=== PATIENT | female | born 1930 | race Caucasian/White ===

== ENCOUNTER 2016-09-06 18:00 | Inpatient (IN) | payer OTHER, MEDICARE ==
[~2016-09-06] VITALS: Ht 157.5 cm; Wt 60.2 kg
[~2016-09-06 18:00] MED LIST: AMLO5 PO; ATOR20TA PO; CALC600T44 PO; DILTCD120 PO; FERR325T PO; METO50TA PO; NORC7.5T PO; RIVA20 PO; VITA100018 PO; WALKER STANDARD
[2016-09-06 18:02] VITALS: BP 135/73; PULSE 81; RESP 16; TEMP 98.8; O2SAT 95
[2016-09-06] MEDS ORDERED: PIPERACIL-TAZO 4.5 GM PREMIX 100 ML IV STA (18:18)
[2016-09-06] MEDS ORDERED: SODIUM CHLOR 0.9% 1000 ML INJ 800 ML IV ONE (18:18)
[2016-09-06] MEDS ORDERED: VANCOMYCIN INJ 1,000 MG in SODIUM CHLOR 0.9% 250 ML INJ 250 ML IV STA (18:18)
[2016-09-06] MEDS ORDERED: SODIUM CHLOR 0.9% 1000 ML INJ 1,000 ML IV ONE (18:18)
--- NOTE | 2016-09-06 18:25 | PD ---
HPI Chief Complaint: Altered Mental Status Time Seen by Provider: 18:10 Travel History International Travel<30 days: No Contact w/Intl Traveler<30days: No Traveled to known affect area: No History of Present Illness HPI 86-year-old female with history of HTN, HLD, TIA who presents the emergency department for altered mental status. Patient is here with her who provides history. Patient last seen normal 2 days ago. Over the course the last 2 days patient has become progressively more and more altered, confused. They note that she has had tactile fevers at home, cough. Patient has not had any complaints. is concerned patient may be dehydrated. Patient is alert, looking around the room, but confused and is not even alert to self lead alone place or time. Not able to participate with history. PFSH Past Medical History Autoimmune Disease: No Heart Rhythm Problems: No Cancer: No Cardiovascular Problems: Yes High Cholesterol: Yes Chest Pain: No Congestive Heart Failure: No Cerebrovascular Accident: Yes (2 tia) Diminished Hearing: No Endocrine: No Genitourinary: No Hypertension: Yes Immune Disorder: No Musculoskeletal: No Neurologic: No Reproductive: No Respiratory: No Immunizations Current: Yes Menopausal: Yes Past Surgical History Eye Surgery: Yes (BILAT CATARACT) Joint Replacement: Yes (right hip and L hip) Other Surgery: Yes (CAROTID ENDARECTOMY RIGHT) Social History Alcohol Use: Yes (RARE) Tobacco Use: No Substance Use: No Allergies-Medications (Allergen,Severity, Reaction): Coded Allergies: Sulfa (Verified Allergy, Mild, RASH, 09/06/16) Reported Meds & Prescriptions Reported Meds & Active Scripts Active Xarelto 20 Mg Tab (Rivaroxaban) 20 Mg Tab 20 Mg PO DAILY 30 Days Metoprolol Tartrate 50 Mg Tab 50 Mg PO BID Diltiazem HCl ER (Diltiazem HCl) 120 Mg Capcr 120 Mg PO DAILY 0 Days Norvasc (Amlodipine Besylate) 5 Mg Tab 5 Mg PO DAILY Walker Standard (Device) Device 1 Ea Reported Calcium (Calcium Carbonate) 600 Mg Tab 600 Mg PO DAILY Iron (Ferrous Sulfate) 325 Mg Tab 325 Mg PO UNKNOWN Atorvastatin 20 mg tab (Atorvastatin Calcium) 20 Mg Tab 20 Mg PO HS [place] 7.5/325 (Hydrocodone/Acetaminophen 7.5/325) 7.5 Mg/325 Mg Tab 1 Tab PO TID PRN Vitamin D (Cholecalciferol) 1,000 Unit Tab Unknown Dose PO DAILY Review of Systems ROS Limitations: Altered Mental Status, Poor Historian Physical Exam Exam Limitations: Altered Mental Status, Poor Historian Narrative GENERAL: Elderly female, thin line in bed in no acute distress SKIN: Warm and dry. HEAD: Normocephalic. EYES: Pupils equal and round. 3 mm. No scleral icterus. No injection or drainage. ENT: No nasal bleeding or discharge. Mucous membranes slightly dry NECK: Supple without nuchal rigidity CARDIOVASCULAR: Regular rate and rhythm. No murmur appreciated. RESPIRATORY: No accessory muscle use. Clear to auscultation. Breath sounds equal bilaterally. GASTROINTESTINAL: Abdomen soft, non-tender, nondistended. MUSCULOSKELETAL: No obvious deformities. No edema. NEUROLOGICAL: Awake, looking around room in no acute distress. Patient is not alert to self, place, or time. Motor grossly within normal limits. Normal speech, not slurred. PSYCHIATRIC: Deferred given mental status Data Data Last Documented VS Vital Signs Date Time Temp Pulse Resp B/P Pulse Ox O2 Delivery O2 Flow Rate FiO2 09/06/16 18:34 87 18 09/06/16 18:33 100.2 09/06/16 18:30 96 09/06/16 18:02 135/73 Orders Electrocardiogram (09/06/16 18:18) Complete Blood Count With Diff (09/06/16 18:18) Comprehensive Metabolic Panel (09/06/16 18:18) Lactic Acid Sepsis Protocol (09/06/16 18:18) Lipase (09/06/16 18:18) Troponin I (09/06/16 18:18) Urinalysis - C+S If Indicated (09/06/16 18:18) Blood Culture (09/06/16 18:18) Chest, Single Ap (09/06/16 18:18) Blood Glucose (09/06/16 18:18) Ecg Monitoring (09/06/16 18:18) Iv Access Insert/Monitor (09/06/16 18:18) Oximetry (09/06/16 18:18) Acetaminophen (Tylenol) (09/06/16 18:30) Vancomycin Inj (Vancomycin Inj) (09/06/16 18:18) Piperacil-Tazo 4.5 Gm Premix (Zosyn 4.5 (09/06/16 18:18) Sodium Chlor 0.9% 1000 Ml Inj (Ns 1000 M (09/06/16 18:18) Sodium Chlor 0.9% 1000 Ml Inj (Ns 1000 M (09/06/16 18:18) Ct Brain W/O Iv Contrast(Rout) (09/06/16 ) Labs Laboratory Tests Test 09/06/16 18:28 White Blood Count 6.8 TH/MM3 Red Blood Count 4.51 MIL/MM3 Hemoglobin 14.4 GM/DL Hematocrit 42.6 % Mean Corpuscular Volume 94.3 FL Mean Corpuscular Hemoglobin 32.0 PG Mean Corpuscular Hemoglobin 33.9 % Concent Red Cell Distribution Width 11.4 % Platelet Count 260 TH/MM3 Mean Platelet Volume 8.1 FL Neutrophils (%) (Auto) 78.8 % Lymphocytes (%) (Auto) 11.5 % Monocytes (%) (Auto) 8.5 % Eosinophils (%) (Auto) 0.3 % Basophils (%) (Auto) 0.9 % Neutrophils # (Auto) 5.3 TH/MM3 Lymphocytes # (Auto) 0.8 TH/MM3 Monocytes # (Auto) 0.6 TH/MM3 Eosinophils # (Auto) 0.0 TH/MM3 Basophils # (Auto) 0.1 TH/MM3 CBC Comment DIFF FINAL Differential Comment MDM Medical Decision Making Medical Screen Exam Complete: Yes Emergency Medical Condition: Yes Medical Record Reviewed: Yes Differential Diagnosis 86-year-old elderly female here with complaint of altered mental status, fever and concern for dehydration. Differential includes UTI, pneumonia, delirium, electrolyte abnormality, bacteremia, intra-abdominal source sepsis, symptomatic anemia, ICH, CVA. Narrative Course Patient placed on monitor, IV established and blood obtained. Her oral temperature in triage was normal, the patient is tactilely warm and her temperature was checked rectally and was 100.2. Patient was given Tylenol and empirically treated with 30 mg/kg normal saline bolus, vancomycin, Zosyn. Twelve-lead EKG showed sinus rhythm without notable ST abnormalities, normal intervals. CBC, CMP, lipase, lactic acid, troponin, urinalysis, blood cultures were obtained and are pending at the time this dictation. Chest x-ray, CT had also remains pending. Patient signed out to oncoming provider waiting results of same for ultimate admission. Diagnosis Primary Impression: Altered mental status Qualified Code: R41.0 - Delirium Additional Impression: Fever Qualified Code: R50.9 - Fever, unspecified fever cause Admitting Information Admitting Physician Requests: Admit Julia Salas MD Sep 06, 2016 18:25
[2016-09-06 18:30] VITALS: O2SAT 96
[2016-09-06] MEDS ORDERED: ACETAMINOPHEN 325 MG TAB PO ONE (18:30)
[2016-09-06 18:33] VITALS: TEMP 100.2
[2016-09-06 18:41] LABS: AUTOMATED NEUTROPHIL # 5.3 TH/MM3 (1.8-7.7); BASOPHIL # 0.1 TH/MM3 (0-0.2); BASOPHIL % 0.9 % (0.0-2.0); EOSINOPHIL % 0.3 % (0.0-4.0); HEMATOCRIT 42.6 % (35.0-46.0); HEMO FLAGS DIFF FINAL; LYMPH % 11.5 % (9.0-44.0); LYMPHOCYTE # 0.8 TH/MM3 (1.0-4.8); MEAN CELL VOLUME 94.3 FL (80.0-100.0); MEAN CORPUSCULAR HGB CONC 33.9 % (32.0-36.0); MONO % 8.5 % (0.0-8.0); NEUT % 78.8 % (16.0-70.0); PLATELET COUNT 260 TH/MM3 (150-450); RED BLOOD COUNT 4.51 MIL/MM3 (4.00-5.30); RED CELL DISTRIBUTION WIDTH 11.4 % (11.6-17.2); WHITE BLOOD COUNT 6.8 TH/MM3 (4.0-11.0)
[2016-09-06 18:49] LABS: GLUCOSE,URINE NEG (NEG); KETONE, URINE NEG (NEG); NITRITE,URINE NEG (NEG)
[2016-09-06 18:53] LABS: BLOOD, URINE MOD (NEG)
[2016-09-06 18:54] LABS: CHLORIDE 98 MEQ/L (98-107); POTASSIUM 3.1 MEQ/L (3.5-5.1); SODIUM (NA) 136 MEQ/L (136-145)
[2016-09-06 18:56] LABS: METHOD OF COLLECTION CATH; SQUAMOUS EPITHELIAL CELL URINE 0-2 /hpf (0-5); URINE COLOR YELLOW (YELLW/STRAW); WBC, URINE 0-2 /hpf (0-5)
[2016-09-06 18:57] LABS: BACTERIA, URINE RARE /hpf; COMMENT (UR) CULTURE INDICATED; CULTURE IF INDICATED CULTURE INDICATED
[2016-09-06 18:58] LABS: ANION GAP 10 MEQ/L (5-15); BICARBONATE 28.1 MEQ/L (21.0-32.0); BLOOD UREA NITROGEN 12 MG/DL (7-18)
[2016-09-06 19:01] LABS: ALT (GPT) 11 U/L (10-53); AST (GOT) 13 U/L (15-37); GLOMERULAR FILTRATION RATE 47 ML/MIN (>89)
[2016-09-06 19:02] LABS: TOTAL BILIRUBIN ADULT 0.8 MG/DL (0.2-1.0)
[2016-09-06 19:03] LABS: ALKALINE PHOSPHATASE 124 U/L (45-117)
--- NOTE | 2016-09-06 19:10 | RADHPO ---
EXAM DATE/TIME: 09/06/2016 18:43 [facility] COMPARISON: CT BRAIN W/O CONTRAST, January 20, 2015, 13:00. INDICATIONS : Altered mental status. RADIATION DOSE: 63.14 CTDIvol (mGy) MEDICAL HISTORY : Cardiovascular disease. Hypertension. SURGICAL HISTORY : None. ENCOUNTER: Initial ACUITY: 1 day PAIN SCALE: 5/10 LOCATION: cranial TECHNIQUE: Multiple contiguous axial images were obtained of the head. Using automated exposure control and adj ustment of the mA and/or kV according to patient size, radiation dose was kept as low as reasonably a chievable to obtain optimal diagnostic quality images. FINDINGS: CEREBRUM: The ventricles are normal for age. No evidence of midline shift, mass lesion, hemorrhage or acute in farction. No extra-axial fluid collections are seen. Chronic low attenuation again seen in the periv entricular white matter. POSTERIOR FOSSA: The cerebellum and brainstem are intact. The 4th ventricle is midline. The cerebellopontine angle i s unremarkable. EXTRACRANIAL: There is mucoperiosteal thickening in the visualized ethmoid air cells and fluid/debris in the left m axillary air cell. SKULL: The calvaria is intact. No evidence of skull fracture. CONCLUSION: 1. No acute intracranial abnormality. 2. Chronic white matter changes. 3. Acute on chronic-appearing sinus disease. Felipe Haas MD on September 06, 2016 at 19:07 Board Certified Radiologist. This report was verified electronically.
--- NOTE | 2016-09-06 19:15 | RADHPO ---
EXAM DATE/TIME: 09/06/2016 18:23 [facility] COMPARISON: CHEST SINGLE AP, March 20, 2015, 15:54. INDICATIONS : Per family patient has altered mental status and fever. MEDICAL HISTORY : Hypertension. SURGICAL HISTORY : None. ENCOUNTER: Initial ACUITY: 1 day PAIN SCORE: 0/10 LOCATION: Bilateral chest FINDINGS: No infiltrate, effusion or pneumothorax. Heart size stable, within normal limits. Calcified mitral va lve again noted. Thoracic aorta and mediastinal vessels are tortuous. CONCLUSION: No acute cardiopulmonary disease demonstrated. Felipe Haas MD on September 06, 2016 at 19:13 Board Certified Radiologist. This report was verified electronically.
--- NOTE | 2016-09-06 19:33 | PD ---
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 HEAD: Normocephalic. EYES: No scleral icterus. No injection or drainage. NECK: Supple, trachea midline. No JVD or lymphadenopathy. CARDIOVASCULAR: Regular rate and rhythm without murmurs, gallops, or rubs. RESPIRATORY: Breath sounds equal bilaterally. No accessory muscle use. GASTROINTESTINAL: Abdomen soft, non-tender, nondistended. Data Data Last Documented VS Vital Signs Date Time Temp Pulse Resp B/P Pulse Ox O2 Delivery O2 Flow Rate FiO2 09/06/16 19:51 85 18 130/74 95 Room Air 09/06/16 18:33 100.2 Orders Electrocardiogram (09/06/16 18:18) Complete Blood Count With Diff (09/06/16 18:18) Comprehensive Metabolic Panel (09/06/16 18:18) Lactic Acid Sepsis Protocol (09/06/16 18:18) Lipase (09/06/16 18:18) Troponin I (09/06/16 18:18) Urinalysis - C+S If Indicated (09/06/16 18:18) Blood Culture (09/06/16 18:18) Chest, Single Ap (09/06/16 18:18) Blood Glucose (09/06/16 18:18) Ecg Monitoring (09/06/16 18:18) Iv Access Insert/Monitor (09/06/16 18:18) Oximetry (09/06/16 18:18) Acetaminophen (Tylenol) (09/06/16 18:30) Vancomycin Inj (Vancomycin Inj) (09/06/16 18:18) Piperacil-Tazo 4.5 Gm Premix (Zosyn 4.5 (09/06/16 18:18) Sodium Chlor 0.9% 1000 Ml Inj (Ns 1000 M (09/06/16 18:18) Sodium Chlor 0.9% 1000 Ml Inj (Ns 1000 M (09/06/16 18:18) Ct Brain W/O Iv Contrast(Rout) (09/06/16 ) Urine Culture (09/06/16 18:25) Admit To Inpatient (09/06/16 ) Vital Signs (Adult) Q4H (09/06/16 20:14) Activity Oob With Assistance (09/06/16 20:14) Senior Firmware Engineer / Telemetry .CONTINUOUS (09/06/16 20:14) Diet Heart Healthy (09/07/16 Breakfast) Sodium Chloride 0.9% Flush (Ns Flush) (09/06/16 20:15) Sodium Chloride 0.9% Flush (Ns Flush) (09/06/16 21:00) Basic Metabolic Panel (Bmp) (09/07/16 06:00) Complete Blood Count With Diff (09/07/16 06:00) Creatine Kinase (Cpk) (09/07/16 00:30) Creatine Kinase (Cpk) (09/07/16 06:30) Troponin I (09/07/16 00:30) Troponin I (09/07/16 06:30) Electrocardiogram (09/07/16 00:30) Electrocardiogram (09/07/16 06:30) Pt Request For Service (09/06/16 20:14) Case Management Consult (09/06/16 20:14) Naloxone Inj (Narcan Inj) (09/06/16 20:15) Inpatient Certification (09/06/16 ) Vancomycin Consult Pharmacy (Vancomycin (09/06/16 20:30) Admit Order (Ed Use Only) (09/06/16 ) ^ Saline Lock (09/06/16 20:19) Resp Oxygen Sunil C Titrat 1-4 L (09/06/16 ) ^ Notify Dr: Other (09/06/16 20:19) Labs Laboratory Tests Test 09/06/16 09/06/16 09/06/16 18:25 18:28 19:12 Urine Collection Type CATH Urine Color YELLOW Urine Turbidity CLEAR Urine pH 7.0 Urine Specific [place] 1.014 Urine Protein 30 mg/dL Urine Glucose (UA) NEG mg/dL Urine Ketones NEG mg/dL Urine Occult Blood MOD Urine Nitrite NEG Urine Bilirubin NEG Urine Leukocyte Esterase NEG Urine RBC 4-9 /hpf Urine WBC 0-2 /hpf Urine Squamous Epithelial 0-2 /hpf Cells Urine Bacteria RARE /hpf Microscopic Urinalysis Comment CULTURE INDICATED White Blood Count 6.8 TH/MM3 Red Blood Count 4.51 MIL/MM3 Hemoglobin 14.4 GM/DL Hematocrit 42.6 % Mean Corpuscular Volume 94.3 FL Mean Corpuscular Hemoglobin 32.0 PG Mean Corpuscular Hemoglobin 33.9 % Concent Red Cell Distribution Width 11.4 % Platelet Count 260 TH/MM3 Mean Platelet Volume 8.1 FL Neutrophils (%) (Auto) 78.8 % Lymphocytes (%) (Auto) 11.5 % Monocytes (%) (Auto) 8.5 % Eosinophils (%) (Auto) 0.3 % Basophils (%) (Auto) 0.9 % Neutrophils # (Auto) 5.3 TH/MM3 Lymphocytes # (Auto) 0.8 TH/MM3 Monocytes # (Auto) 0.6 TH/MM3 Eosinophils # (Auto) 0.0 TH/MM3 Basophils # (Auto) 0.1 TH/MM3 CBC Comment DIFF FINAL Differential Comment Sodium Level 136 MEQ/L Potassium Level 3.1 MEQ/L Chloride Level 98 MEQ/L Carbon Dioxide Level 28.1 MEQ/L Anion Gap 10 MEQ/L Blood Urea Nitrogen 12 MG/DL Creatinine 1.10 MG/DL Estimat Glomerular Filtration 47 ML/MIN Rate Random Glucose 124 MG/DL Calcium Level 9.4 MG/DL Total Bilirubin 0.8 MG/DL Aspartate Amino Transf 13 U/L (AST/SGOT) Alanine Aminotransferase 11 U/L (ALT/SGPT) Alkaline Phosphatase 124 U/L Troponin I 0.55 NG/ML Total Protein 7.7 GM/DL Albumin 3.9 GM/DL Lipase 132 U/L Lactic Acid Level 1.6 mmol/L [facility] Medical Record Reviewed: Yes Supervised Visit with JIM: No Interpretation(s) Vital Signs Date Time Temp Pulse Resp B/P Pulse Ox O2 Delivery O2 Flow Rate FiO2 09/06/16 18:34 87 18 09/06/16 18:33 100.2 09/06/16 18:30 96 09/06/16 18:02 98.8 81 16 135/73 95 Last Impressions Chest X-Ray 09/06/16 1818 Signed Impressions: Service Date/Time: Tuesday, September 06, 2016 18:23 - CONCLUSION: No acute cardiopulmonary disease demonstrated. Felipe Haas MD Head CT 09/06/16 0000 Signed Impressions: Service Date/Time: Tuesday, September 06, 2016 18:43 - CONCLUSION: 1. No acute intracranial abnormality. 2. Chronic white matter changes. 3. Acute on chronic-appearing sinus disease. Felipe Haas MD CBC & BMP Diagram 09/06/16 18:28 troponin I: 0.55, elevated ua: cath specimen: rare bacteria --cx indicated Differential Diagnosis accepted in transfer of care from Dr Salas; please refer to her dictation Narrative Course accepted in transfer of care from Dr Salas Lab values resulted patient identified to have an elevated troponin of 0.55 lactic acid of 1.6 renal insufficiency creatinine of 1.10 with hypokalemia 3.1 Patient's case discussed in detail with admitting physician Dr. Aquino; patient will be admitted for altered mentation with fever probable sepsis/sirs; with elevated troponin I without evidence of abnormal changes on EKG possible nstemi patient takes xarelto; hypokalemia and renal insufficiency. Patient given aspirin 162 mg and oral potassium replacement Critical Care Narrative Aggregate critical care time was pending 35minutes. Time to perform other separately billable procedures was not included in the critical care time. My time did not include minutes spent treating any other patients simultaneously or on activities that did not directly contribute to the patient's treatment. The services I provided to this patient were to treat and/or prevent clinically significant deterioration that could result in: Arrhythmia, septic/cardiogenic shock, I provided critical care services requiring my management, as noted below: Chart data review, documentation time, medication orders and management, vital sign assessments/reviewing monitor data, ordering and reviewing lab tests, ordering and interpreting/reviewing x-rays and diagnostic studies, care of the patient and discussion of the patient with the admitting physicians. Diagnosis Primary Impression: Altered mental status Qualified Code: R41.0 - Delirium Additional Impressions: Fever Qualified Code: R50.9 - Fever, unspecified fever cause Elevated troponin NSTEMI (non-ST elevated myocardial infarction) Hypokalemia Admitting Information Admitting Physician Requests: Admit Scripts Unable to Obtain Active Prescriptions or Reported Meds Kateryna Pimentel MD Sep 06, 2016 19:33
[2016-09-06 19:51] VITALS: BP 130/74; PULSE 85; RESP 18; O2SAT 95
[2016-09-06] MEDS ORDERED: NALOXONE HCL 0.4 MG/ML AMP IV PRN (20:15)
[2016-09-06] MEDS ORDERED: SODIUM CHLORIDE 0.9% FLUSH 5 ML FLUSH FLUSH PRN (20:15)
[2016-09-06] MEDS ORDERED: SODIUM CHLORIDE 0.9% FLUSH 5 ML FLUSH IVF PRN (20:30)
[2016-09-06] MEDS ORDERED: Vancomycin Consult Pharmacy 1 EA OTHER SCH (20:30)
[2016-09-06] MEDS ORDERED: SODIUM CHLORIDE 0.9% FLUSH 5 ML FLUSH IVF SCH (21:00)
[2016-09-06] MEDS: SODIUM CHLORIDE 0.9% FLUSH 5 ML FLUSH FLUSH SCH (21:00)
[2016-09-06 22:20] VITALS: O2SAT 97
[2016-09-06] MEDS: PIPERACILLIN/TAZ 2.25 GM VIAL 2.25 GM in SODIUM CHLORIDE 0.9% INJ 50 ML IV SCH (23:09)
[2016-09-06 23:13] VITALS: BP 131/64; PULSE 74; RESP 18; TEMP 99.1; O2SAT 94
[2016-09-07] VITALS (12 sets, daily range): BP systolic 118–178; BP diastolic 51–91; PULSE 58–86; RESP 14–26; TEMP 97.2–98.1; O2SAT 89–97
[2016-09-07] MEDS ORDERED: POTASSIUM CHLORIDE 20 MEQ CONTROLLED RELEASE TAB PO ONE
[2016-09-07] MEDS ORDERED: ASPIRIN 81 MG CHEW TAB CHEW ONE
[2016-09-07] MEDS ORDERED: PIPERACIL-TAZO 4.5 GM PREMIX 100 ML IV SCH
[2016-09-07] MEDS ORDERED: PIPERACILLIN/TAZ 2.25 GM VIAL 2.25 GM in SODIUM CHLORIDE 0.9% INJ 50 ML IV SCH ×2
[2016-09-07] MEDS ORDERED: HEPARIN-D5W INJ 250 ML IV SCH (02:00)
[2016-09-07 02:22] LABS: MEAN CELL VOLUME 95.6 FL (80.0-100.0); MEAN CORPUSCULAR HEMOGLOBIN 31.8 PG (27.0-34.0); MEAN CORPUSCULAR HGB CONC 33.3 % (32.0-36.0); PLATELET COUNT 226 TH/MM3 (150-450); RED BLOOD COUNT 3.77 MIL/MM3 (4.00-5.30); RED CELL DISTRIBUTION WIDTH 12.1 % (11.6-17.2); REVIEW FLAG FINAL; WHITE BLOOD COUNT 6.8 TH/MM3 (4.0-11.0)
[2016-09-07 02:36] LABS: PROTHROMBIN TIME - PATIENT 10.6 SEC (9.8-11.6)
[2016-09-07] MEDS: PIPERACILLIN/TAZ 2.25 GM VIAL 2.25 GM in SODIUM CHLORIDE 0.9% INJ 50 ML IV SCH (05:26)
[2016-09-07 06:40] LABS: AUTOMATED NEUTROPHIL # 3.8 TH/MM3 (1.8-7.7); BASOPHIL # 0.2 TH/MM3 (0-0.2); BASOPHIL % 3.9 % (0.0-2.0); EOSINOPHIL # 0.1 TH/MM3 (0-0.4); EOSINOPHIL % 1.9 % (0.0-4.0); HEMATOCRIT 36.2 % (35.0-46.0); HEMO FLAGS DIFF FINAL; LYMPHOCYTE # 1.2 TH/MM3 (1.0-4.8); MEAN CELL VOLUME 94.3 FL (80.0-100.0); MEAN CORPUSCULAR HEMOGLOBIN 33.3 PG (27.0-34.0); MEAN CORPUSCULAR HGB CONC 35.3 % (32.0-36.0); MONO % 13.3 % (0.0-8.0); NEUT % 61.9 % (16.0-70.0); PLATELET COUNT 201 TH/MM3 (150-450); RED BLOOD COUNT 3.84 MIL/MM3 (4.00-5.30); RED CELL DISTRIBUTION WIDTH 11.8 % (11.6-17.2); WHITE BLOOD COUNT 6.1 TH/MM3 (4.0-11.0)
[2016-09-07 07:37] LABS: BICARBONATE 25.9 MEQ/L (21.0-32.0); POTASSIUM 3.1 MEQ/L (3.5-5.1)
[2016-09-07] MEDS ORDERED: HEPARIN SODIUM - IV 10,000 UNITS/10 ML VIAL IV PRN ×2 (08:00)
[2016-09-07] MEDS: SODIUM CHLORIDE 0.9% FLUSH 5 ML FLUSH FLUSH SCH ×2 (09:00→21:54)
[2016-09-07 09:11] LABS: APTT (PATIENT) 28.4 SEC (24.3-30.1)
--- NOTE | 2016-09-07 10:27 | HHI.HP ---
cc: Dom Brito MD [facility] Dom Brito MD Admission Diagnosis AMS/sirs; elevated troponin I Diagnoses: (1) Acute metabolic encephalopathy (2) Hypokalemia (3) NSTEMI (non-ST elevated myocardial infarction) (4) Altered mental status (5) Elevated troponin (6) History of hemiarthroplasty of left hip (7) Hypertension Travel History International Travel<30 Days: No Contact w/Intl Traveler <30 Da: No Traveled to Known Affected Are: No History of Present Illness This is a very pleasant 86-year-old female with past medical history of hypertension, hyperlipidemia, postoperative PE in 2015, perioperative A. fib in 2015, reported history of TIA who presented to the ER last night for confusion. History was obtained from the patient's friend Mr. Scott at bedside as well as the patient. The patient does not remember anything from yesterday or why she was brought into the hospital. She is alert and oriented 3 but still mildly confused about events. Normally she is quite clear according to the patient's friend. There was no slurred speech or unilateral weakness. The patient does drink 2 beers a day approximately. The patient is able to tell me only that she has high blood pressure and hyperlipidemia and that her primary care physician is Dr. Brito. According to the ER physician history the patient was reported to have cough, tactile fever. However the patient denies cough to me. She denies any pain or shortness of breath. 12 point review of systems is otherwise negative. The patient lives by herself. She has no living family. Her friends Lori and Florentin Shipman serve as her legal power of repairer finished metal and the form is on her chart they can be reached at [phone]. Overnight her troponin bumped up to 0.7 and she was started on heparin drip. The patient denies any chest pain chest pressure or dyspnea. She is a DO NOT RESUSCITATE but she would like to have cardiology evaluation. Review of Systems ROS Limitations: Poor Historian Except as stated in HPI: all other systems reviewed are Neg Past Family Social History Past Medical History Hypertension Hyperlipidemia History of carotid endarterectomy History of perioperative A. fib in 2015 History of TE in 2015 after hip fracture Possible history of TIA Past Surgical History Right carotid endarterectomy Hip replacement Bilateral cataract Reported Medications Allergies Coded Allergies Type Severity Reaction Last Updated Verified Sulfa Allergy Mild RASH 09/06/16 Yes Active Scripts Medications Dose Route/Sig Days Date Category Active Prescriptions or Reported Medications Unobtainable Rx Allergies: Coded Allergies: Sulfa (Verified Allergy, Mild, RASH, 09/06/16) Family History Reviewed and noncontributory. Social History The patient has never smoked. She works in a [employer] company for many years. She has no living family. She drinks 2 beers a day. Physical Exam Vital Signs Vital Signs Date Time Temp Pulse Resp B/P Pulse Ox O2 Delivery O2 Flow Rate FiO2 09/07/16 07:42 97.2 70 20 146/73 96 Room Air 09/07/16 07:42 96 Room Air 09/07/16 06:37 97.8 58 16 126/51 95 Room Air 09/07/16 04:39 72 16 150/67 95 Room Air 09/07/16 03:46 97.7 74 16 118/56 95 Room Air 09/07/16 03:30 73 16 95 Room Air 09/07/16 02:17 71 18 129/61 97 Room Air 09/06/16 23:13 99.1 74 18 131/64 94 Room Air 09/06/16 22:20 97 21 09/06/16 21:45 85 18 96 Room Air 09/06/16 19:51 85 18 130/74 95 Room Air 09/06/16 18:34 87 18 09/06/16 18:33 100.2 09/06/16 18:30 96 09/06/16 18:02 98.8 81 16 135/73 95 Physical Exam GENERAL: Well-nourished, well-developed pleasant elderly female patient. SKIN: Warm and dry. HEAD: Normocephalic. EYES: No scleral icterus. No injection or drainage. NECK: Supple, trachea midline. No JVD or lymphadenopathy. CARDIOVASCULAR: Regular rate and rhythm without murmurs, gallops, or rubs. RESPIRATORY: Breath sounds equal and clear to auscultation bilaterally. No accessory muscle use. GASTROINTESTINAL: Abdomen soft, non-tender, nondistended. EXTREMITIES: No cyanosis, or edema. NEUROLOGICAL: Awake, alert, and oriented x 3. Non-focal. Speech is normal. 5 out of 5 strength in all 4 extremities. Laboratory Laboratory Tests Test 09/06/16 09/06/16 09/06/16 09/07/16 18:25 18:28 19:12 01:04 Urine Collection Type CATH Urine Color YELLOW Urine Turbidity CLEAR Urine pH 7.0 Urine Specific [place] 1.014 Urine Protein 30 Urine Glucose (UA) NEG Urine Ketones NEG Urine Occult Blood MOD Urine Nitrite NEG Urine Bilirubin NEG Urine Leukocyte Esterase NEG Urine RBC 4-9 Urine WBC 0-2 Urine Squamous Epithelial 0-2 Cells Urine Bacteria RARE Microscopic Urinalysis Comment CULTURE INDICATED White Blood Count 6.8 Red Blood Count 4.51 Hemoglobin 14.4 Hematocrit 42.6 Mean Corpuscular Volume 94.3 Mean Corpuscular Hemoglobin 32.0 Mean Corpuscular Hemoglobin 33.9 Concent Red Cell Distribution Width 11.4 Platelet Count 260 Mean Platelet Volume 8.1 Neutrophils (%) (Auto) 78.8 Lymphocytes (%) (Auto) 11.5 Monocytes (%) (Auto) 8.5 Eosinophils (%) (Auto) 0.3 Basophils (%) (Auto) 0.9 Neutrophils # (Auto) 5.3 Lymphocytes # (Auto) 0.8 Monocytes # (Auto) 0.6 Eosinophils # (Auto) 0.0 Basophils # (Auto) 0.1 CBC Comment DIFF FINAL Differential Comment Sodium Level 136 Potassium Level 3.1 Chloride Level 98 Carbon Dioxide Level 28.1 Anion Gap 10 Blood Urea Nitrogen 12 Creatinine 1.10 Estimat Glomerular Filtration 47 Rate Random Glucose 124 Calcium Level 9.4 Total Bilirubin 0.8 Aspartate Amino Transf 13 (AST/SGOT) Alanine Aminotransferase 11 (ALT/SGPT) Alkaline Phosphatase 124 Troponin I 0.55 0.70 Total Protein 7.7 Albumin 3.9 Lipase 132 Lactic Acid Level 1.6 Total Creatine Kinase 55 Test 09/07/16 09/07/16 09/07/16 09/07/16 02:10 06:30 07:02 08:43 White Blood Count 6.8 6.1 Red Blood Count 3.77 3.84 Hemoglobin 12.0 12.8 Hematocrit 36.0 36.2 Mean Corpuscular Volume 95.6 94.3 Mean Corpuscular Hemoglobin 31.8 33.3 Mean Corpuscular Hemoglobin 33.3 35.3 Concent Red Cell Distribution Width 12.1 11.8 Platelet Count 226 201 Mean Platelet Volume 8.6 8.3 Prothrombin Time 10.6 Prothromb Time International 1.0 Ratio Activated Partial 24.0 28.4 Thromboplast Time Neutrophils (%) (Auto) 61.9 Lymphocytes (%) (Auto) 19.0 Monocytes (%) (Auto) 13.3 Eosinophils (%) (Auto) 1.9 Basophils (%) (Auto) 3.9 Neutrophils # (Auto) 3.8 Lymphocytes # (Auto) 1.2 Monocytes # (Auto) 0.8 Eosinophils # (Auto) 0.1 Basophils # (Auto) 0.2 CBC Comment DIFF FINAL Differential Comment Sodium Level 141 Potassium Level 3.1 Chloride Level 106 Carbon Dioxide Level 25.9 Anion Gap 9 Blood Urea Nitrogen 8 Creatinine 0.85 Estimat Glomerular Filtration 64 Rate Random Glucose 104 Calcium Level 8.3 Total Creatine Kinase 59 Troponin I 0.45 Date/Time Procedure Status Source Growth 09/06/16 19:10 Aerobic Blood Culture Received Blood Peripheral Pending 09/06/16 19:10 Anaerobic Blood Culture Received Blood Peripheral Pending 09/06/16 18:25 Urine Culture Received Urine Catheterized Urine Pending Result Diagram: 09/07/16 0630 09/07/16 0702 Imaging Last Impressions Chest X-Ray 09/06/16 1818 Signed Impressions: Service Date/Time: Tuesday, September 06, 2016 18:23 - CONCLUSION: No acute cardiopulmonary disease demonstrated. Felipe Haas MD Head CT 09/06/16 0000 Signed Impressions: Service Date/Time: Tuesday, September 06, 2016 18:43 - CONCLUSION: 1. No acute intracranial abnormality. 2. Chronic white matter changes. 3. Acute on chronic-appearing sinus disease. Felipe Haas MD Assessment and Plan Assessment and Plan -Transient confusion. Appears to be clearing today. The patient has a history of perioperative A. fib in 2015 along with possible history of TIA in the past. Her confusion may be multifactorial secondary to a NSTEMI and possible UTI. I will obtain an MRI brain and Doppler carotid ultrasound. She does have history of carotid endarterectomy. She is in normal sinus rhythm on telemetry. Will obtain echocardiogram as well. I will obtain her primary care physician records. Start her on Plavix. DC heparin drip. -Possible NSTEMI. Troponin elevated at 0.7. No history of chest pain however the patient does not remember events from yesterday. We'll obtain a 2-D echocardiogram and cardiology consultation. The patient is agreeable to this. We'll start on Plavix as she has a sulfa allergy. Resume her cholesterol medication when that can be obtained from her med history. -Hypertension. Her home medications need to be reconciled. We'll start her on metoprolol for now. -Hyperlipidemia. Again need to reconcile home medications. -Possible UTI. Will place her on Ceftin by mouth. -Hypokalemia. Will replete. -Mild acute kidney injury, resolved. Hep-Lock IV. -She was placed on broad-spectrum antibiotics last night however does not meet any of the SIRS criteria. Chest x-ray showed no acute process and I reviewed the images myself. Blood cultures are negative at 24 hours. I will DC antibiotics. -DVT prophylaxis with Lovenox 40 mg subcutaneous daily. -The patient states she is DO NOT RESUSCITATE status and this was confirmed with her friend at bedside in the presence of nurse Vicente. Her friends Lori and Florentin Shipman serve as her legal power of repairer finished metal and the form is on her chart they can be reached at [phone]. I have asked her in the nurse to fill out a health care surrogate form and offered the patient a DO NOT RESUSCITATE form to be scanned into the medical record. Problem Qualifiers (1) Altered mental status: Qualified Code: R41.0 - Delirium Lori Murphy MD Sep 07, 2016 10:27
[2016-09-07] MEDS ORDERED: ACETAMINOPHEN 325 MG TAB PO PRN (12:00)
[2016-09-07] MEDS ORDERED: NALOXONE HCL 0.4 MG/ML AMP IV PRN (12:00)
[2016-09-07] MEDS ORDERED: ONDANSETRON HCL 4 MG/2 ML VIAL IVP PRN (12:00)
[2016-09-07] MEDS ORDERED: MAGNESIUM HYDROXIDE SUSP 30 ML CUP PO PRN (12:00)
[2016-09-07] MEDS: CLOPIDOGREL 75 MG TAB PO SCH (12:31)
[2016-09-07] MEDS ORDERED: VANCOMYCIN 1,000 MG/NS 250 ML IV SCH ×2 (14:00)
[2016-09-07] MEDS ORDERED: PLAV75TA29 PO (14:48)
[2016-09-07] MEDS ORDERED: COLA100C3 PO (14:48)
[2016-09-07] MEDS ORDERED: VITD400 PO (14:48)
[2016-09-07] MEDS ORDERED: POTA595T PO (14:48)
[2016-09-07] MEDS ORDERED: OSTETAB7 PO (14:48)
[2016-09-07] MEDS ORDERED: ATOR40TA16 PO (14:48)
[2016-09-07] MEDS ORDERED: ALEN1TAB48 PO (14:48)
[2016-09-07] MEDS ORDERED: TRIA37.5 PO (14:48)
[2016-09-07] MEDS ORDERED: METO50TA PO (14:48)
[2016-09-07] MEDS ORDERED: DILT120C7 PO (14:48)
[2016-09-07] MEDS ORDERED: AMLO5TAB2 PO (14:48)
[2016-09-07] MEDS ORDERED: GABA100C4 PO (14:48)
--- NOTE | 2016-09-07 15:00 | RADHPO ---
EXAM DATE/TIME: 09/07/2016 11:54 [facility] COMPARISON: No previous studies available for comparison. EXTERNAL COMPARISON : [facility], US CAROTID ARTERIES, December 04, 2012[facility], [facility]. [facility], CTA CAROTID ARTERIES W 3D PROCESSING, February 23, 2007. [facility], [place] CAROTID ARTERIES, February 09, 2007. INDICATIONS : Transient ischemic attack. MEDICAL HISTORY : Hypercholesterolemia. Hypertension. Transient ischemic attack x 2. UTI. SURGICAL HISTORY : Right carotid endarterectomy. Bilateral cataracts. Bilateral hip replacement. ENCOUNTER: Subsequent ACUITY: 1 day PAIN SCORE: 0/10 LOCATION: Bilateral neck PEAK SYSTOLIC VELOCITIES (cm/sec): ICA/CCA RATIO: Right: 0.8 Left: 1.5 ICA: Right: 81 Left: 120 CCA: Right: 104 Left: 81 ECA: Right: 116 Left: 100 VERTEBRAL: Right: 56 antegrade Left: 67 antegrade Elevated flow velocities and ICA/CCA ratios have been found to correlate with increased degrees of vessel stenosis, calculated as percentage of diameter relative to a normal segment of distal ICA/CCA FINDINGS: RIGHT CAROTID: No significant stenosis is visualized. Mild to moderate plaque. The waveforms are within normal limit s. LEFT CAROTID: No significant stenosis is visualized. Mild to moderate plaque. The waveforms are within normal limi ts. VERTEBRAL ARTERIES: Antegrade flow is seen in both vertebral arteries. MISCELLANEOUS: None. CONCLUSION: No hemodynamically significant stenosis in either carotid artery. Jerel Fleming MD on September 07, 2016 at 14:58 Board Certified Radiologist. This report was verified electronically.
--- NOTE | 2016-09-07 16:00 | RADHPO ---
EXAM DATE/TIME: 09/07/2016 15:36 [facility] COMPARISON: MRI BRAIN W/O CONTRAST, January 21, 2015, 14:17. INDICATIONS : Altered mental status. MEDICAL HISTORY : Hypertension. SURGICAL HISTORY : Carotid endarterectomy. Bilateral hip surgery. ENCOUNTER: Initial ACUITY: 2 day PAIN SCORE: 0/10 LOCATION: head TECHNIQUE: Multiplanar, multisequence MRI of the brain was performed without contrast. FINDINGS: CEREBRUM: The ventricles are normal for age. No evidence of midline shift, mass lesion, hemorrhage or acute in farction. No extraaxial fluid collections are seen. The pituitary gland and suprasellar cistern are normal in configuration. WHITE MATTER: Extensive scattered foci of bright T2 signal abnormalities are seen in the white matter. POSTERIOR FOSSA: The cerebellum and brainstem are intact. The 4th ventricle is midline. The cerebellopontine angle is unremarkable. The cerebellar tonsils are normal in position. DIFFUSION IMAGING: No focal areas of restricted diffusion are seen. No evidence of acute infarction. EXTRACRANIAL: The visualized portions of the orbits and paranasal sinuses are unremarkable. CONCLUSION: 1. Extensive chronic ischemic small vessel vasculopathy. 2. No change from previous study. Jerel Fleming MD on September 07, 2016 at 15:55 Board Certified Radiologist. This report was verified electronically.
[2016-09-07] MEDS ORDERED: cloNIDine HCL 0.1 MG TAB PO PRN (16:30)
--- NOTE | 2016-09-07 16:56 | EKG ---
Date Performed: 09/06/2016 Time Performed: 18:30:52 PTAGE: 86 years EKG: Sinus rhythm Since previous tracing, no significant change noted Normal ECG PREVIOUS TRACING : 03/21/2015 10.25 DOCTOR: Shar Lee Interpretating Date/Time 09/07/2016 16:55:48
--- NOTE | 2016-09-07 16:56 | EKG ---
Date Performed: 09/07/2016 Time Performed: 06:27:04 PTAGE: 86 years EKG: Sinus rhythm . Since previous tracing, no significant change noted Normal ECG PREVIOUS TRACING : 09/07/2016 00.57 DOCTOR: Shar Lee Interpretating Date/Time 09/07/2016 16:55:09
--- NOTE | 2016-09-07 16:56 | EKG ---
Date Performed: 09/07/2016 Time Performed: 00:57:26 PTAGE: 86 years EKG: Sinus rhythm with 1st degree A-V block. Since previous tracing, no significant change noted Abnormal ECG PREVIOUS TRACING : 09/06/2016 18.30 DOCTOR: Shar Lee Interpretating Date/Time 09/07/2016 16:55:32
[2016-09-07] MEDS: GABAPENTIN 100 MG CAP PO SCH (17:18)
--- NOTE | 2016-09-07 20:34 | MB ---
cc: PIPER NAJERA MD DATE OF CONSULTATION: 09/07/2016 REASON FOR CONSULTATION: Non-ST elevation CT. HISTORY OF PRESENT ILLNESS Ms. Murillo is an 86-year-old female who does have a history of hypertension, hyperlipidemia, who presented with altered mental status to the hospital last night. She was found to have an elevated troponin and cardiology was subsequently consulted. The patient is an extremely poor historian and really can only convey that she is not having any cardiac symptoms at this time. PAST MEDICAL HISTORY: Significant for: 1. Hypertension 2. Hyperlipidemia 3. Carotid endarterectomy 4. Postoperative a-fib. 5. History of PE after hip fracture. 6. Possible TIA. PAST SURGICAL HISTORY: Cataracts Hip replacement Right carotid endarterectomy. ALLERGIES SULFA FAMILY HISTORY Noncontributory. SOCIAL HISTORY The patient does not smoke and has two beers a day. REVIEW OF SYSTEMS Except as mentioned in the HPI all 12 systems are negative. PHYSICAL EXAMINATION: On physical examination vital signs are 98.1, 78, 23, 151/86. General: She is a well-appearing female who is in no apparent distress. Neck: Free from JVD. Lungs: Bilaterally clear to auscultation. Cardiovascular examination: She has a normal S1-S2, I did not appreciate any murmurs, rubs or gallops. Abdomen: Soft. Extremities: Free from edema. LABORATORY VALUES: Significant for a total CK peak of 59, peak troponin and 0.7. Her potassium in 3.1. EKG shows normal rhythm. No significant ST-segment shift. IMPRESSION Non-ST elevation CT - it is not clear if this is a primary or secondary event. She is currently asymptomatic. In light of her DNR presentation, we will continue with conservative medical measures. The patient is already on aspirin, beta-ja, and Plavix as well as Lovenox. An echocardiogram has been requested as well as fasting lipid. At this point I would not pursue any further workup given her code status and altered mental status. Altered mental status - this is being managed by the primary team. Piper Najera M.D. DEVIKA/ABE /6:40 PM /7:52 PM
[2016-09-07] MEDS: ATORVASTATIN 40 MG TAB PO SCH (21:54)
[2016-09-07] MEDS: METOPROLOL TARTRATE 50 MG TAB PO SCH (21:54)
[2016-09-07] MEDS: ENOXAPARIN SODIUM 40 MG/0.4 ML SYRINGE SQ SCH (21:54)
[2016-09-08] VITALS (11 sets, daily range): BP systolic 127–169; BP diastolic 72–101; PULSE 58–81; RESP 13–20; TEMP 95.9–98; O2SAT 93–98
[2016-09-08 01:36] LABS: HDL CHOLESTEROL 69.6 MG/DL (40.0-60.0)
[2016-09-08 05:31] LABS: POTASSIUM 3.3 MEQ/L (3.5-5.1)
[2016-09-08 05:34] LABS: BICARBONATE 27.8 MEQ/L (21.0-32.0)
[2016-09-08] MEDS ORDERED: VANCOMYCIN 1,000 MG/NS 250 ML IV SCH ×2 (08:00)
[2016-09-08] MEDS: CLOPIDOGREL 75 MG TAB PO SCH (08:03)
[2016-09-08] MEDS: GABAPENTIN 100 MG CAP PO SCH ×3 (08:03→16:38)
[2016-09-08] MEDS: METOPROLOL TARTRATE 50 MG TAB PO SCH ×2 (08:03→21:13)
[2016-09-08] MEDS: SODIUM CHLORIDE 0.9% FLUSH 5 ML FLUSH FLUSH SCH ×2 (08:04→21:11)
--- NOTE | 2016-09-08 10:50 | HHI.PR ---
Subjective Remarks Patient seen today in follow-up for non-ST elevation IA. No events on telemetry. Patient appears to have some cognitive impairment and baseline. Her significant other is at the bedside and reports that she is back to normal however patient does not appear to have good short term recall. Respiratory status is at baseline. MRI does show chronic changes without acute infarct Objective Vitals Vital Signs Date Time Temp Pulse Resp B/P Pulse Ox O2 Delivery O2 Flow Rate FiO2 09/08/16 08:00 97.0 69 20 169/101 98 09/08/16 08:00 77 09/08/16 07:59 98 Nasal Cannula 2.00 09/08/16 04:00 96.4 71 18 133/72 96 09/08/16 01:25 81 09/08/16 00:30 96.6 81 18 140/86 98 09/08/16 00:21 60 13 133/72 93 09/08/16 00:00 98.0 60 14 127/75 93 09/07/16 20:01 Nasal Cannula 2.00 09/07/16 20:00 79 09/07/16 20:00 89 21 09/07/16 20:00 98.0 86 26 135/79 93 09/07/16 17:41 82 25 151/86 09/07/16 15:45 98.1 76 23 178/91 95 09/07/16 12:35 97.2 74 14 147/71 94 I/O 09/07/16 09/07/16 09/07/16 09/08/16 09/08/16 09/08/16 06:59 14:59 22:59 06:59 14:59 22:59 Intake Total 2300 ml 467 ml Balance 2300 ml 467 ml Intake Oral 420 ml IV Total 2300 ml 47 ml # Voids 1 1 4 # Bowel Movements 0 Result Diagram: 09/07/16 0630 09/08/16 0455 Imaging Last Impressions Carotid Artery Ultrasound 09/07/16 0000 Signed Impressions: Service Date/Time: Wednesday, September 07, 2016 11:54 - CONCLUSION: No hemodynamically significant stenosis in either carotid artery. Jerel Fleming MD Brain MRI 09/07/16 0000 Signed Impressions: Service Date/Time: Wednesday, September 07, 2016 15:36 - CONCLUSION: 1. Extensive chronic ischemic small vessel vasculopathy. 2. No change from previous study. Jerel Fleming MD Chest X-Ray 09/06/16 1818 Signed Impressions: Service Date/Time: Tuesday, September 06, 2016 18:23 - CONCLUSION: No acute cardiopulmonary disease demonstrated. Felipe Haas MD Head CT 09/06/16 0000 Signed Impressions: Service Date/Time: Tuesday, September 06, 2016 18:43 - CONCLUSION: 1. No acute intracranial abnormality. 2. Chronic white matter changes. 3. Acute on chronic-appearing sinus disease. Felipe Haas MD Objective Remarks GENERAL: This is a well-nourished, well-developed patient, in no apparent distress. CARDIOVASCULAR: Regular rate and rhythm without murmurs, gallops, or rubs. RESPIRATORY: Clear to auscultation. Breath sounds equal bilaterally. No wheezes , rales, or rhonchi. GASTROINTESTINAL: Abdomen soft, non-tender, nondistended. Normal active bowel sounds MUSCULOSKELETAL: Extremities without clubbing, cyanosis, or edema. NEURO: Decreased short-term memory, Alert & Oriented x4 to person, place, time , situation. Moves all ext x4 A/P Problem List: (1) Acute metabolic encephalopathy ICD Code: G93.41 Status: Acute Plan: Likely superimposed secondary non-ST elevation IA on top of chronic cognitive impairment Improved and currently at baseline (2) Hypokalemia ICD Code: E87.6 Status: Acute Plan: Replace, check mag (3) NSTEMI (non-ST elevated myocardial infarction) ICD Code: I21.4 Status: Acute Plan: Continue with conservative management. Cardiology consult appreciated Lipitor Lipitor, Plavix, metoprolol, Lovenox DC telemetry, follow up echocardiogram Discharge Planning Likely discharge in a.m. pending echo and potassium WagnerKelly MD Sep 08, 2016 10:50
[2016-09-08] MEDS ORDERED: POTASSIUM CHLORIDE 10 MEQ CONTROLLED RELEASE TAB PO ONE (11:00)
--- NOTE | 2016-09-08 16:04 | PD.CARD.PN ---
Subjective Subjective Remarks Pt without complaints, no CP Objective Medications Current Medications Medications (Trade) Dose Ordered Sig/Aditya Route Start Time Stop Time Status Last Admin (NS Flush) 2 ml UNSCH PRN FLUSH 09/06/16 20:15 (NS Flush) 2 ml BID FLUSH 09/06/16 21:00 09/08/16 08:04 (Narcan Inj) 0.4 mg UNSCH PRN IV 09/06/16 20:15 (Lovenox Inj) 40 mg Q24H SQ 09/07/16 21:00 09/07/16 21:54 (Plavix) 75 mg DAILY PO 09/07/16 12:00 09/08/16 08:03 (Tylenol) 650 mg Q4H PRN PO 09/07/16 12:00 (Zofran Inj) 4 mg Q6H PRN IVP 09/07/16 12:00 (Milk Of Magnesia Liq) 30 ml Q12H PRN PO 09/07/16 12:00 (Narcan Inj) 0.4 mg UNSCH PRN IV 09/07/16 12:00 (Lipitor) 40 mg HS PO 09/07/16 21:00 09/07/16 21:54 (Neurontin) 100 mg TID PO 09/07/16 18:00 09/08/16 12:00 (Lopressor) 50 mg BID PO 09/07/16 21:00 09/08/16 08:03 (Catapres) 0.1 mg Q6H PRN PO 09/07/16 16:30 09/07/16 16:29 Vital Signs / I&O Vital Signs Date Time Temp Pulse Resp B/P Pulse Ox O2 Delivery O2 Flow Rate FiO2 09/08/16 12:00 96.2 58 20 150/73 95 09/08/16 08:00 97.0 69 20 169/101 98 09/08/16 08:00 77 09/08/16 07:59 98 Nasal Cannula 2.00 09/08/16 04:00 96.4 71 18 133/72 96 09/08/16 01:25 81 09/08/16 00:30 96.6 81 18 140/86 98 09/08/16 00:21 60 13 133/72 93 09/08/16 00:00 98.0 60 14 127/75 93 09/07/16 20:01 Nasal Cannula 2.00 09/07/16 20:00 79 09/07/16 20:00 89 21 09/07/16 20:00 98.0 86 26 135/79 93 09/07/16 17:41 82 25 151/86 I/O 09/07/16 09/07/16 09/07/16 09/08/16 09/08/16 09/08/16 07:00 15:00 23:00 07:00 15:00 23:00 Intake Total 2300 ml 467 ml 480 ml Output Total 200 ml Balance 2300 ml 467 ml 280 ml Intake Oral 420 ml 480 ml IV Total 2300 ml 47 ml Output Urine Total 200 ml # Voids 1 1 4 # Bowel Movements 0 0 Physical Exam GENERAL: Well developed, well nourished. No acute distress. HEENT: Jugular venous pressure is normal. CHEST: Lungs clear to auscultation bilaterally. Unlabored respiratory effort. CARDIAC: Regular rate and rhythm without S3, S4, or murmur. ABDOMEN: Soft, nontender, no hepatosplenomegaly. Bowel sounds present. EXTREMITIES: No clubbing, cyanosis, or edema. Laboratory Laboratory Tests Test 09/08/16 04:55 Sodium Level 142 MEQ/L Potassium Level 3.3 MEQ/L Chloride Level 106 MEQ/L Carbon Dioxide Level 27.8 MEQ/L Anion Gap 8 MEQ/L Blood Urea Nitrogen 13 MG/DL Creatinine 0.90 MG/DL Estimat Glomerular Filtration 60 ML/MIN Rate Random Glucose 97 MG/DL Calcium Level 8.7 MG/DL Magnesium Level 1.8 MG/DL Assessment and Plan Assessment and Plan NSTEMI- no CP, ECHO pending -continue with conservative measures Estefanía Najera MD Sep 08, 2016 16:04
[2016-09-08] MEDS ORDERED: ASPIRIN 81 MG CHEW TAB CHEW ONE (16:15)
--- NOTE | 2016-09-08 20:01 | EC ---
Study Study Date:09/08/2016 STUDY CONCLUSIONS SUMMARY - Left ventricle: The cavity size was normal. Wall thickness was increased increased in a pattern of mild to moderate LVH. Systolic function was normal. The estimated ejection fraction was 60%. Wall motion was normal; there were no regional wall motion abnormalities. - Aortic valve: Calcified annulus. Trileaflet; moderately thickened, mildly calcified leaflets. Transvalvular velocity was minimally increased. There was mild stenosis. Mild regurgitation. - Mitral valve: Severely calcified annulus. Mildly thickened, noncalcified leaflets, . Mild to moderate regurgitation. - Tricuspid valve: Mild-moderate regurgitation. - Pulmonary arteries: PA peak pressure: 34mm Hg (S). If LV function is below 40, please consider prescribing an ACEI or ARB or document rationale for non-use. PROCEDURE DATA STUDY STATUS: Elective. Procedure: Transthoracic echocardiography. Image quality was good. Scanning was performed from the parasternal, apical, and subcostal acoustic windows. Study completion: The patient tolerated the procedure well. Transthoracic echocardiography. M-mode, complete 2D, complete spectral Doppler, and color Doppler. Height: Height: 62in. Weight: Weight: 131.7lb. Body mass index: BMI: 24.1kg/m^2. Body surface area: BSA: 1.6m^2. Patient status: Inpatient. CARDIAC ANATOMY LEFT VENTRICLE: The cavity size was normal. Wall thickness was increased increased in a pattern of mild to moderate LVH. Systolic function was normal. The estimated ejection fraction was 60%. Wall motion was normal; there were no regional wall motion abnormalities. AORTIC VALVE: Calcified annulus. Trileaflet; moderately thickened, mildly calcified leaflets. Doppler: Transvalvular velocity was minimally increased. There was mild stenosis. Mild regurgitation. Valve area: 0.71cm^2(VTI). Indexed valve area: 0.44cm^2/m^2 (VTI). Valve area: 0.68cm^2 (Vmax). Indexed valve area: 0.43cm^2/m^2 (Vmax). Mean gradient: 14mm Hg (S). Peak gradient: 26mm Hg (S). AORTA: Aortic root: The aortic root was normal in size. MITRAL VALVE: Severely calcified annulus. Mildly thickened, noncalcified leaflets, . Doppler: Transvalvular velocity was within the normal range. There was no evidence for stenosis. Mild to moderate regurgitation. Peak gradient: 4mm Hg (D). LEFT ATRIUM: The atrium was normal in size. RIGHT VENTRICLE: The cavity size was normal. Wall thickness was normal. PULMONIC VALVE: Doppler: Transvalvular velocity was within the normal range. There was no evidence for stenosis. No regurgitation. TRICUSPID VALVE: Structurally normal valve. Doppler: Transvalvular velocity was within the normal range. Mild-moderate regurgitation. PULMONARY ARTERY: The main pulmonary artery was normal-sized. Systolic pressure was within the normal range. RIGHT ATRIUM: The atrium was normal in size. PERICARDIUM: There was no pericardial effusion. SYSTEMIC VEINS: Inferior vena cava: The vessel was normal in size. Patient weight: 131.7lb _Ejection fraction:_ 65-75% _Fractional shortening:_ 32% up to 5Kg 5-11.5Kg 11.6-22.9Kg 23-45Kg 45-57Kg Aortic Root 7-13 <17 13-22 17-27 17-27 LA diam 6-13 <23 24-38 33-47 37-40 RVID 10-17 7-15 7-15 7-18 8-17 LVIDd 12-22 <32 24-38 33-47 37-40 LVPW 2-4 3-6 5-7 6-8 7-8 IVS 2-4 3-6 5-7 6-8 7-8 BASIC MEASUREMENTS ADULT NORMAL Left ventricle LV internal dimension, ED, chordal *31.8 mm 43-52 level, PLAX LV internal dimension, ES, chordal *20.3 mm 23-38 level, PLAX Fractional shortening, chordal level, 36 % >29 PLAX LV posterior wall thickness, ED 14.3 mm IVS/LVPW ratio, ED 1 <1.3 Ventricular septum Septal thickness, ED 14.3 mm Aorta Root diameter, ED 32 mm Left atrium Anterior-posterior dimension 39 mm Anterior-posterior dimension index *2.44 cm/m^2 <2.2 DOPPLER MEASUREMENTS ADULT NORMAL Main pulmonary artery Pressure, S *34 mm Hg =30 Aortic valve Peak velocity, S 255 cm/s Mean velocity, S 173 cm/s VTI, S 51.5 cm Mean gradient, S 14 mm Hg Peak gradient, S 26 mm Hg Valve area, VTI 0.71 cm^2 Valve area index, VTI 0.44 cm^2/m^2 Valve area, Vmax 0.68 cm^2 Valve area index, Vmax 0.43 cm^2/m^2 Mitral valve Peak E-wave velocity 96.5 cm/s Peak A-wave velocity 129 cm/s Peak gradient, D 4 mm Hg Peak E/A ratio 0.7 Tricuspid valve Regurgitant peak velocity 233 cm/s Peak RV-RA gradient, S 22 mm Hg Maximal regurgitant velocity 233 cm/s Systemic veins Estimated CVP 10 mm Hg Right ventricle RV pressure, S *35 mm Hg <30 Pulmonic valve Peak velocity, S 52.6 cm/s LEGEND: Mean values are shown as u=mean value. Asterisk (*) martins values outside specified normal range. Prepared and signed by Priyanka Araujo [id number]
[2016-09-08] MEDS: ENOXAPARIN SODIUM 40 MG/0.4 ML SYRINGE SQ SCH (21:12)
[2016-09-08] MEDS: ATORVASTATIN 40 MG TAB PO SCH (21:13)
[2016-09-09] VITALS: BP 127/67; PULSE 57; RESP 18; TEMP 96.5; O2SAT 96
[2016-09-09 06:55] LABS: POTASSIUM 3.7 MEQ/L (3.5-5.1)
[2016-09-09 07:04] LABS: BICARBONATE 25.7 MEQ/L (21.0-32.0)
[2016-09-09 08:00] VITALS: BP 150/89; PULSE 76; RESP 18; TEMP 98.2; O2SAT 95
[2016-09-09 08:38] VITALS: O2SAT 98
[2016-09-09] MEDS ORDERED: ASPIRIN 81 MG CHEW TAB CHEW SCH (09:00)
[2016-09-09] MEDS: SODIUM CHLORIDE 0.9% FLUSH 5 ML FLUSH FLUSH SCH (09:01)
[2016-09-09] MEDS: GABAPENTIN 100 MG CAP PO SCH (09:03)
[2016-09-09] MEDS: CLOPIDOGREL 75 MG TAB PO SCH (09:03)
[2016-09-09] MEDS: METOPROLOL TARTRATE 50 MG TAB PO SCH (09:03)
[2016-09-09] MEDS ORDERED: ASPI1TAB69 PO (10:11)
--- NOTE | 2016-09-09 10:11 | HHI.DCPOC ---
Discharge Care Plan Diagnosis: (1) NSTEMI (non-ST elevated myocardial infarction) Goals to Promote Your Health * To prevent worsening of your condition and complications * To maintain your health at the optimal level Directions to Meet Your Goals Take your medications as prescribed Follow your dietary instruction Follow activity as directed Keep your appointments as scheduled Take your immunizations and boosters as scheduled If your symptoms worsen call your PCP, if no PCP go to Urgent Care Center or Emergency Room Smoking is Dangerous to Your Health. Avoid second hand smoke Call the 24-hour hour crisis hotline for domestic abuse at Kelly Edward MD Sep 09, 2016 10:11
--- NOTE | 2016-09-09 10:14 | HHI.DS ---
cc: Dom Brito MD Discharge Summary Admission Date Sep 06, 2016 at 20:20 Discharge Date: Sep 09, 2016 Admitting Diagnosis AMS/sirs; elevated troponin I (1) Acute metabolic encephalopathy ICD Code: G93.41 Diagnosis: Secondary (2) Hypokalemia ICD Code: E87.6 Diagnosis: Secondary (3) NSTEMI (non-ST elevated myocardial infarction) ICD Code: I21.4 Diagnosis: Principal Procedures None Brief History - From Admission This is a very pleasant 86-year-old female with past medical history of hypertension, hyperlipidemia, postoperative PE in 2014, perioperative A. fib in 2014, reported history of TIA who presented to the ER last night for confusion. History was obtained from the patient's friend Mr. Scott at bedside as well as the patient. The patient does not remember anything from yesterday or why she was brought into the hospital. She is alert and oriented 3 but still mildly confused about events. Normally she is quite clear according to the patient's friend. There was no slurred speech or unilateral weakness. The patient does drink 2 beers a day approximately. The patient is able to tell me only that she has high blood pressure and hyperlipidemia and that her primary care physician is Dr. Brito. According to the ER physician history the patient was reported to have cough, tactile fever. However the patient denies cough to me. She denies any pain or shortness of breath. 12 point review of systems is otherwise negative. The patient lives by herself. She has no living family. Her friends Lori and Florentin Shipman serve as her legal power of disability attorney and the form is on her chart they can be reached at [phone]. Overnight her troponin bumped up to 0.7 and she was started on heparin drip. The patient denies any chest pain chest pressure or dyspnea. She is a DO NOT RESUSCITATE but she would like to have cardiology evaluation. CBC/BMP: 09/07/16 0630 09/09/16 0625 Significant Findings Laboratory Tests Test 09/06/16 09/06/16 09/07/16 09/07/16 18:25 18:28 01:04 02:10 Urine Protein 30 mg/dL (NEG-TRACE) Urine Occult Blood MOD (NEG) Urine RBC 4-9 /hpf (0-3) Urine Bacteria RARE /hpf (NONE) Red Cell Distribution Width 11.4 % (11.6-17.2) Neutrophils (%) (Auto) 78.8 % (16.0-70.0) Monocytes (%) (Auto) 8.5 % (0.0-8.0) Lymphocytes # (Auto) 0.8 TH/MM3 (1.0-4.8) Potassium Level 3.1 MEQ/L (3.5-5.1) Creatinine 1.10 MG/DL (0.50-1.00) Estimat Glomerular Filtration 47 ML/MIN (>89) Rate Random Glucose 124 MG/DL (74-106) Aspartate Amino Transf 13 U/L (15-37) (AST/SGOT) Alkaline Phosphatase 124 U/L (45-117) Troponin I 0.55 NG/ML 0.70 NG/ML (0.02-0.05) (0.02-0.05) Red Blood Count 3.77 MIL/MM3 (4.00-5.30) Activated Partial 24.0 SEC Thromboplast Time (24.3-30.1) Test 09/07/16 09/07/16 09/08/16 09/09/16 06:30 07:02 04:55 06:25 Red Blood Count 3.84 MIL/MM3 (4.00-5.30) Monocytes (%) (Auto) 13.3 % (0.0-8.0) Basophils (%) (Auto) 3.9 % (0.0-2.0) Potassium Level 3.1 MEQ/L 3.3 MEQ/L (3.5-5.1) (3.5-5.1) Estimat Glomerular Filtration 64 ML/MIN (>89) 60 ML/MIN (>89) 60 ML/MIN (>89) Rate Calcium Level 8.3 MG/DL (8.5-10.1) Troponin I 0.45 NG/ML (0.02-0.05) HDL Cholesterol 69.6 MG/DL (40.0-60.0) Imaging echo: Preserved ejection fraction, no wall dysfunction Last Impressions Carotid Artery Ultrasound 09/07/16 0000 Signed Impressions: Service Date/Time: Wednesday, September 07, 2016 11:54 - CONCLUSION: No hemodynamically significant stenosis in either carotid artery. Jerel Fleming MD Brain MRI 09/07/16 0000 Signed Impressions: Service Date/Time: Wednesday, September 07, 2016 15:36 - CONCLUSION: 1. Extensive chronic ischemic small vessel vasculopathy. 2. No change from previous study. Jerel Fleming MD Chest X-Ray [id number] Signed Impressions: Service Date/Time: Tuesday, September 06, 2016 18:23 - CONCLUSION: No acute cardiopulmonary disease demonstrated. Felipe Haas MD Head CT 09/06/16 0000 Signed Impressions: Service Date/Time: Tuesday, September 06, 2016 18:43 - CONCLUSION: 1. No acute intracranial abnormality. 2. Chronic white matter changes. 3. Acute on chronic-appearing sinus disease. Felipe Haas MD PE at Discharge GENERAL: This is a well-nourished, well-developed patient, in no apparent distress. CARDIOVASCULAR: Regular rate and rhythm without murmurs, gallops, or rubs. RESPIRATORY: Clear to auscultation. Breath sounds equal bilaterally. No wheezes , rales, or rhonchi. GASTROINTESTINAL: Abdomen soft, non-tender, nondistended. Normal active bowel sounds MUSCULOSKELETAL: Extremities without clubbing, cyanosis, or edema. NEURO: Decreased short-term memory, Alert & Oriented x4 to person, place, time , situation. Moves all ext x4 Pt update on day of discharge Patient seen today in follow-up for non-ST elevation KS. Chest pain discharged discussed with patient, significant other and nursing team. Medication list reviewed with patient Hospital Course Patient is 86-year-old female came in with some confusion. She was found to have a non-ST elevation KS. Her mental status returned to baseline and medications were adjusted accordingly. She did have a cardiology consult as well as echocardiogram. Due to the patient's desire for nonaggressive therapy and her DO NOT RESUSCITATE status patient was managed very conservatively Pt Condition on Discharge: Good Discharge Disposition: Discharge Home Discharge Time: > 30 minutes Discharge Instructions DIET: Follow Instructions for: Heart Healthy Diet Activities you can perform: Regular-No Restrictions Follow up Referrals: PCP Follow-up - 1 Week with [facility] New Medications: Aspirin (Aspirin) 81 Mg Tabdr 81 MG PO DAILY cad #30 TAB Continued Medications: Alendronate (Alendronate) 70 Mg Tab 70 MG PO Q7D Osteporosis Treatment #4 Ref 0 TAB Amlodipine (Amlodipine) 5 Mg Tab 5 MG PO DAILY Blood Pressure Management #30 Ref 0 TAB Atorvastatin (Atorvastatin) 40 Mg Tab 40 MG PO HS Cholesterol Management #30 Ref 0 TAB Cholecalciferol (Vitamin D3) 400 Unit Tab 400 UNITS PO DAILY Nutritional Supplement #1 Ref 0 TAB Clopidogrel (Plavix) 75 Mg Tab 75 MG PO DAILY Blood Clot Prevention #30 Ref 0 TAB Diltiazem ER 24 HR (Diltiazem ER 24 HR) 120 Mg Caper 120 MG PO DAILY Ref 0 CAP Docusate Sodium (Colace) 100 Mg Cap 100 MG PO BID Constipation #60 Ref 0 CAP Gabapentin (Gabapentin) 100 Mg Cap 100 MG PO TID #90 Ref 0 CAP Metoprolol Tartrate (Metoprolol Tartrate) 50 Mg Tab 50 MG PO BID #60 Ref 0 TAB Misc Natural Products (Osteo Bi-Flex Joint Shiel) 1 Tab Tab 1 TAB PO DAILY Potassium Gluconate (Potassium Gluconate) 595 Mg Tab 1 TAB PO DAILY Triamterene-Hydrochlorothiazide (Triamterene-Hydrochlorothiazide) 37.5-25 Mg Tab 1 TAB PO DAILY #30 Ref 0 TAB Kelly Edward MD Sep 09, 2016 10:14
[2016-09-09] MEDS ORDERED: PHARMACY ORDERED LAB XX ONE (13:45)
== END 2016-09-09 12:03 | disposition home or self-care (01) | DRG 280 ==
LOC: PHED 18:00 → PHEDA 20:20 → PHEDH 09-07 00:20 → PHICU 09-07 08:56 → PH3A 09-08 00:30
PROVIDERS: ADMIT Hospitalist; ATTEND Hospitalist
DX: I21.4 Non-ST elevation (NSTEMI) myocardial infarction (principal); G93.41 Metabolic encephalopathy; N17.9 Acute kidney failure, unspecified; I10 Essential (primary) hypertension; Z86.73 Personal history of transient ischemic attack (TIA), and cerebral infarction without residual deficits; E78.00 Pure hypercholesterolemia, unspecified; Z96.643 Presence of artificial hip joint, bilateral; E87.6 Hypokalemia; E78.5 Hyperlipidemia, unspecified; Z66 Do not resuscitate; Z88.2 Allergy status to sulfonamides; Z86.711 Personal history of pulmonary embolism; R41.0 Disorientation, unspecified
CPT/HCPCS: 70450; 70551; 71010; 80048; 80053; 80061; 81001; 82550; 83605; 83690; 83735; 84484; 85025; 85027; 85610; 85730; 87040; 87086; 93005; 93306; 93880; 96365; J1644; J1650; J2543; J3370; J7030; J7050

== ENCOUNTER 2017-01-31 12:42 | Emergency (ER) | payer OTHER, MEDICARE ==
[~2017-01-31 12:42] MED LIST changes: +ALEN1TAB48 PO; -AMLO5 PO; +AMLO5TAB2 PO; +ASPI1TAB69 PO; -ATOR20TA PO; +ATOR40TA16 PO; -CALC600T44 PO; +COLA100C3 PO; +DILT120C7 PO; -DILTCD120 PO; -FERR325T PO; +GABA100C4 PO; -NORC7.5T PO; +OSTETAB7 PO; +PLAV75TA29 PO; +POTA595T PO; -RIVA20 PO; +TRIA37.5 PO; -VITA100018 PO; +VITD400 PO; -WALKER STANDARD
[2017-01-31 12:54] VITALS: BP 137/85; PULSE 87; RESP 20; TEMP 98.9; O2SAT 95
--- NOTE | 2017-01-31 13:41 | PD ---
HPI Chief Complaint: Dizziness Time Seen by Provider: 12:59 Travel History International Travel<30 days: No Contact w/Intl Traveler<30days: No Traveled to known affect area: No History of Present Illness HPI This 86-year-old female who been having some dizzy spells last couple of days. She had a couple yesterday and she had one this morning. Says she has had dizzy spells in the past. She does take medication when she gets them she is not sure what the medication is. She does have a history of a stroke in the past. She is not having any headaches. She does admit to 2-3 beers daily. She is not having any headaches. PFSH Past Medical History Autoimmune Disease: No Heart Rhythm Problems: No Cancer: No Cardiovascular Problems: Yes High Cholesterol: Yes Chest Pain: No Congestive Heart Failure: No Cerebrovascular Accident: Yes (TIA X's 2) Diminished Hearing: No Endocrine: No Gastrointestinal Disorders: No Genitourinary: No Hypertension: Yes Immune Disorder: No Musculoskeletal: No Neurologic: Yes ("Memory problems" ) Psychiatric: No Reproductive: No Respiratory: No Immunizations Current: Yes Tetanus Vaccination: < 5 Years Influenza Vaccination: Yes ?: Not Menopausal: Yes Past Surgical History Eye Surgery: Yes (BILAT CATARACT) Joint Replacement: Yes (BL hips ) Other Surgery: Yes (Rt. carotid endarterectomy ) Social History Alcohol Use: Yes (Patient reports 3 beers/day, SO states she drinks all day) Tobacco Use: No Substance Use: No Allergies-Medications (Allergen,Severity, Reaction): Coded Allergies: Sulfa (Verified Allergy, Mild, RASH, 01/31/17) Reported Meds & Prescriptions Reported Meds & Active Scripts Active Reported Aspirin 81 (Aspirin) 81 Mg Tabdr 81 Mg PO DAILY Atorvastatin (Atorvastatin Calcium) 40 Mg Tab 40 Mg PO HS Diltiazem ER 12 HR (Diltiazem HCl) 120 Mg Caper 120 Mg PO DAILY Amlodipine (Amlodipine Besylate) 5 Mg Tab 5 Mg PO DAILY Vitamin D (Cholecalciferol) 2,000 Unit Cap 1 Cap PO DAILY Potassium Gluconate 595 Mg Tab 1 Tab PO DAILY Review of Systems General / Constitutional: No: Fever, Chills Eyes: No: Diploplia, Blurred Vision HENT: Positive: Vertigo, No: Headaches Cardiovascular: No: Chest Pain or Discomfort, Palpitations Respiratory: No: Cough, Shortness of Breath Gastrointestinal: No: Nausea, Vomiting Genitourinary: No: Urgency, Frequency Musculoskeletal: No: Arthralgias Skin: No Rash Neurologic: Positive: Dizziness, No: Weakness, Syncope Hematologic/Lymphatic: No: Easy Bruising Physical Exam Narrative GENERAL: Thin frail lady no acute distress SKIN: Focused skin assessment warm/dry. HEAD: Atraumatic. Normocephalic. EYES: Pupils equal and round. No scleral icterus. No injection or drainage. ENT: No nasal bleeding or discharge. Mucous membranes pink and moist. NECK: Trachea midline. No JVD. CARDIOVASCULAR: Regular rate and rhythm. No murmur appreciated. RESPIRATORY: No accessory muscle use. Clear to auscultation. Breath sounds equal bilaterally. GASTROINTESTINAL: Abdomen soft, non-tender, nondistended. Hepatic and splenic margins not palpable. MUSCULOSKELETAL: No obvious deformities. No clubbing. No cyanosis. No edema. NEUROLOGICAL: Awake and alert. No obvious cranial nerve deficits. Motor grossly within normal limits. Normal speech. No nystagmus. Engine Lathe Operator equal area and leg strength symmetric PSYCHIATRIC: Appropriate mood and affect; insight and judgment normal. Data Data Last Documented VS Vital Signs Date Time Temp Pulse Resp B/P Pulse Ox O2 Delivery O2 Flow Rate FiO2 01/31/17 12:54 98.9 87 20 137/85 95 Orders Electrocardiogram (01/31/17 13:11) Complete Blood Count With Diff (01/31/17 13:11) Basic Metabolic Panel (Bmp) (01/31/17 13:11) Ct Brain W/O Iv Contrast(Rout) (01/31/17 13:11) Labs Laboratory Tests Test 01/31/17 13:30 White Blood Count 6.7 TH/MM3 Red Blood Count 4.11 MIL/MM3 Hemoglobin 13.3 GM/DL Hematocrit 38.0 % Mean Corpuscular Volume 92.5 FL Mean Corpuscular Hemoglobin 32.3 PG Mean Corpuscular Hemoglobin 34.9 % Concent Red Cell Distribution Width 12.2 % Platelet Count 229 TH/MM3 Mean Platelet Volume 8.5 FL Neutrophils (%) (Auto) 72.6 % Lymphocytes (%) (Auto) 17.2 % Monocytes (%) (Auto) 8.3 % Eosinophils (%) (Auto) 1.2 % Basophils (%) (Auto) 0.7 % Neutrophils # (Auto) 4.9 TH/MM3 Lymphocytes # (Auto) 1.1 TH/MM3 Monocytes # (Auto) 0.6 TH/MM3 Eosinophils # (Auto) 0.1 TH/MM3 Basophils # (Auto) 0.0 TH/MM3 CBC Comment DIFF FINAL Differential Comment Sodium Level 138 MEQ/L Potassium Level 3.6 MEQ/L Chloride Level 101 MEQ/L Carbon Dioxide Level 27.5 MEQ/L Anion Gap 10 MEQ/L Blood Urea Nitrogen 15 MG/DL Creatinine 1.10 MG/DL Estimat Glomerular Filtration 47 ML/MIN Rate Random Glucose 106 MG/DL Calcium Level 8.8 MG/DL [facility] Medical Decision Making Medical Screen Exam Complete: Yes Emergency Medical Condition: Yes Medical Record Reviewed: Yes Differential Diagnosis Differential includes vertigo, cva, subdural Narrative Course Patient does drink a fair amount so I did do a CT to make sure there is no subdural this is negative. Patient has had a stroke in the past but is not taking aspirin. I recommended she take a daily aspirin. She is asymptomatic at present Diagnosis Primary Impression: Vertigo Additional Instructions: Take one aspirin daily Disposition: 01 DISCHARGE HOME Condition: Stable Victoriano Amado MD Jan 31, 2017 13:41
[2017-01-31 13:42] LABS: AUTOMATED NEUTROPHIL # 4.9 TH/MM3 (1.8-7.7); BASOPHIL % 0.7 % (0.0-2.0); EOSINOPHIL # 0.1 TH/MM3 (0-0.4); EOSINOPHIL % 1.2 % (0.0-4.0); HEMO FLAGS DIFF FINAL; LYMPH % 17.2 % (9.0-44.0); LYMPHOCYTE # 1.1 TH/MM3 (1.0-4.8); MEAN CELL VOLUME 92.5 FL (80.0-100.0); MEAN CORPUSCULAR HEMOGLOBIN 32.3 PG (27.0-34.0); MEAN CORPUSCULAR HGB CONC 34.9 % (32.0-36.0); MONO % 8.3 % (0.0-8.0); NEUT % 72.6 % (16.0-70.0); PLATELET COUNT 229 TH/MM3 (150-450); RED BLOOD COUNT 4.11 MIL/MM3 (4.00-5.30); RED CELL DISTRIBUTION WIDTH 12.2 % (11.6-17.2); WHITE BLOOD COUNT 6.7 TH/MM3 (4.0-11.0)
[2017-01-31] MEDS ORDERED: VITA200013 PO (13:43)
[2017-01-31] MEDS ORDERED: DILT120C9 PO (13:43)
[2017-01-31] MEDS ORDERED: POTA595T PO (13:43)
[2017-01-31] MEDS ORDERED: ATOR40TA16 PO (13:43)
[2017-01-31] MEDS ORDERED: AMLO5TAB2 PO (13:43)
[2017-01-31] MEDS ORDERED: ASPI-110 PO (13:43)
--- NOTE | 2017-01-31 13:49 | RADRPT ---
EXAM DATE/TIME: 01/31/2017 13:33 [facility] COMPARISON: CT BRAIN W/O CONTRAST, September 06, 2016, 18:43. INDICATIONS : Dizziness. RADIATION DOSE: 60.62 CTDIvol (mGy) MEDICAL HISTORY : Cerebrovascular disease. Hypertension. SURGICAL HISTORY : Cataracts removed. Right carotid endarectomy. ENCOUNTER: Initial ACUITY: 1 day PAIN SCALE: 0/10 LOCATION: cranial TECHNIQUE: Multiple contiguous axial images were obtained of the head. Using automated exposure control and adj ustment of the mA and/or kV according to patient size, radiation dose was kept as low as reasonably a chievable to obtain optimal diagnostic quality images. DICOM format image data is available electro nically for review and comparison. FINDINGS: CEREBRUM: Areas of low attenuation throughout the white matter. The ventricles are normal for age. No evidence of midline shift, mass lesion, hemorrhage or acute infarction. No extra-axial fluid collections are seen. POSTERIOR FOSSA: The cerebellum and brainstem are intact. The 4th ventricle is midline. The cerebellopontine angle i s unremarkable. EXTRACRANIAL: The visualized portion of the orbits is intact. SKULL: The calvaria is intact. No evidence of skull fracture. CONCLUSION: Nonspecific white matter changes. Jerel Fleming MD on January 31, 2017 at 13:47 Board Certified Radiologist. This report was verified electronically.
[2017-01-31 13:55] LABS: POTASSIUM 3.6 MEQ/L (3.5-5.1)
[2017-01-31 13:58] LABS: BICARBONATE 27.5 MEQ/L (21.0-32.0)
--- NOTE | 2017-02-01 19:14 | EKG ---
Date Performed: 01/31/2017 Time Performed: 13:53:29 PTAGE: 86 years EKG: Sinus rhythm WITH FREQUENT SUPRAVENTRICULAR PREMATURE COMPLEXES ABNORMAL RHYTHM ECG PREVIOUS TRACING : 09/07/2016 06.27 Compared to prior tracing no significant change DOCTOR: Rito Teague Interpretating Date/Time 02/01/2017 19:12:17
== END 2017-01-31 14:25 | disposition home or self-care (01) ==
LOC: PHED 12:42
DX: R42 Dizziness and giddiness (principal); I10 Essential (primary) hypertension; Z86.73 Personal history of transient ischemic attack (TIA), and cerebral infarction without residual deficits; E78.00 Pure hypercholesterolemia, unspecified; Z79.82 Long term (current) use of aspirin; I49.3 Ventricular premature depolarization
CPT/HCPCS: 70450; 80048; 85025; 93005; 99285